=== PATIENT | female | born 1985 | race Caucasian/White ===

== ENCOUNTER 2016-08-09 21:31 | Emergency (ER) | payer MEDICARE, MEDICAID ==
[~2016-08-09] VITALS: Ht 162.6 cm; Wt 125.2 kg
[~2016-08-09 21:31] MED LIST: CLOTRIMAZOLE 1% LEFT EAR; NO ROUTINE MEDS
[2016-08-09 21:48] VITALS: BP 139/81; PULSE 90; RESP 24; TEMP 98.8; O2SAT 98; Ht 162.6 cm; Wt 125.2 kg
[2016-08-09] MEDS ORDERED: BIRTH CONTROL PILL PO (21:54)
--- NOTE | 2016-08-09 22:09 | ERPDOC ---
Departure Disposition Decision Date: Aug 09, 2016 Disposition Decision Time: 22:13 Disposition: 01 DISCHARGED HOME, SELF-CARE Impression Impression Impression: Primary Impression: Myalgia and myositis Severity: Moderate Condition: Improved Seen By: Physician only Referrals: ANGIE HEARN DO (PCP) Patient Instructions: Leg Pain (ED) Problems/Meds/Labs Reviewed?: Yes Medications reviewed and manag: Yes Additional Instructions: This appears to be inflammation of the lateral muscle on the thigh, the vastus lateralis. Take ibuprofen 600 mg 4 times daily and/or Tylenol 1000 g 4 times daily for pain control Offload pressure over the affected area as much as possible Get back into her walking regimen Prednisone 20 mg, one tablet once daily for 4 days Follow up care ordered?: Yes Mental Status: Alert Scripts Prednisone (Prednisone) 20 Mg Tablet 20 MG PO DAILY, #4 TAB 0 Refills Prov: DWIGHT SHULTZ MD 08/09/16 HPI - Lower Extremity General Chief Complaint: Lower Extremity Pain Stated Complaint: SEVERE CALF PAIN Time Seen by Provider: 21:56 Source: patient, family Exam Limitations: no limitations HPI - Lower Extremity Initial Comments 2 week history of waxing and waning left lateral distal thigh pain with tingling paresthesias and a feeling of "tightness" into the lateral left calf. Pains have gotten worse over the last 2 days. Patient has no significant injury that she knows of, she is disabled and essentially spends most of her time in a recliner at home. Patient does note that over the past one to 2 weeks with the symptoms, she has been sleeping in the recliner, and wonders if she may have caused a blood clot or some other problem by doing that. Occurred At: home Onset/Timing: Gradual Severity: moderate 1 - Mild to moderate pain with mild tenderness 2 - Radiation of the aching pain down the lateral leg Method of Injury: unknown Quality: aching, sharpness Allergies: Coded Allergies: bupropion (Verified Allergy, Unknown, 08/09/16) hydrocodone bit (Verified Allergy, Unknown, 08/09/16) Past History Patient Surgical History Tympanostomy tubes, 2015 Past Medical History ENMT: dental problems, sinusitis Respiratory: asthma Musculoskeletal: back pain Psychological: ADHD, depression Surgical History General: other, tonsils Family History Family PMH: FOUND: MS, diabetes, hypertension Vaccines Hx Influenza Vaccination: Yes (2014) Review of Systems Constitutional Constitutional: DENIES: appetite decrease, appetite increase, chills, dizziness , fever, weakness ENMT Ears: DENIES: pain Hearing: DENIES: hearing loss, tinnitus Balance: DENIES: vertigo Mouth/Throat: DENIES: change in swallowing, change in voice, hoarsness, painful swallowing, sore throat Cardiovascular Cardiac: DENIES: chest pain, dyspnea on exertion Rhythm/Rate: DENIES: irregular beat, palpitations, tachycardia Vascular: DENIES: pedal edema Pulmonary Respiratory: DENIES: cough, dyspnea, pleuritic chest pain GI Upper Abdomen: DENIES: dysphagia, heartburn/indigestion, nausea, pain, vomiting Lower Abdomen: DENIES: blood in stool, constipation, diarrhea, pain General: DENIES: burning, dysuria, frequency, pain, urgency Musculoskeletal General: pain, tenderness, DENIES: cramps, joint pain, joint swelling, weakness Comments Pain, lateral thigh as diagrammed, with radiation of an aching type sensation down the lateral aspect of the thigh into the calf. Patient has no pain with flexion or extension of the knee, no pain with flexion or extension of the ankle , no ataxia. Integumentary Skin: DENIES: rash, sores Neurological General: DENIES: headache, numbness, tingling, vertigo, weakness Psychiatric Psychiatric: DENIES: anxiety, depression, nervousness Physical Exam General General Nourishment: well nourished, well developed, appears stated age, obese General Body Habitus: well groomed Vitals and Pain First Documented Vital Signs Date Time Temp Pulse Resp B/P Pulse Ox O2 Delivery O2 Flow Rate FiO2 08/09/16 21:48 98.8 90 24 139/81 98 Room Air Weight: Kilograms: 125.200 Height (feet): 5 Height (inches): 4.00 Triage Pain Scale: RN VS reviewed by Provider: Yes Normal Exams: Head: Normocephalic w/o trauma Eyes: Pupils are PERRLA w/ EOMI, No scleral icterus, irritation, or foreign bodies noted ENMT: No facial trauma, nasal exudates, pharyngeal erythema, or exudates are noted Neck: Full range of motion, without adenopathy, JVD, bruits or thyromegaly Chest/Resp: Clear all burden, with good airflow, and symmetry bilaterally CV: Regular rate and rhythm, without murmur or gallop, Pulses 2+ all extremities, capillary refill, <2 seconds all ext., no pedal edema noted Abdomen: Bowel sounds positive, soft, non-tender, non-distended, no hepatosplenomegaly, masses or bruits noted Lymphatic: No lymphadenopathy, or lymphedema noted Integumentary: No rashes, hives, or bruising noted, hair and nails, without abnormality Neurologic: Patient is alert, and oriented, cranial nerves, motor/sensory/ cerebellar, exams w/o gross deficits, to observation Musculoskeletal (brief) Musculoskeletal Brief: FOUND: tenderness (mild to moderate tenderness over the distal vastus lateralis, palpation reproduces the patient's symptoms including radiation into the calf. Patient has no calf pain, no calf swelling, no edema, and calves circumference measurement is metric.), NOT FOUND: deformity, loss of motion, spasm Integumentary (brief) Integumentary Brief: FOUND: dry, pink, warm, NOT FOUND: lesions, rash Neurologic (brief) Neurological Brief: FOUND: CN w/o gross def to obs Psychiatric (brief) Psychiatric Brief: FOUND: attentive, normal affect Progress Progress Progress Patient has no clinical indication of DVT or blood clot. This appears to be pressure induced over the vastus lateralis. Patient has been using both Tylenol and ibuprofen, but has not had any medications today. 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 I discussed at length multiple allergies that the patient will employ to decrease pressure over the area at home while she is sitting or lying. Patient will also increase her exercise walking, as she has gotten away from this the past few weeks. DWIGHT SHULTZ MD Aug 09, 2016 22:09
[2016-08-09] MEDS ORDERED: KETOROLAC 60mg/2ml INJECTION IM ONE (22:15)
[2016-08-09] MEDS ORDERED: PRED20TA PO (22:17)
--- NOTE | 2016-08-09 23:05 | NUR ---
DEPARTURE PT COLLECTED BELONGINGS AND AMBULATED INDEPENDENTLY TO EXIT, GAIT STEADY.
== END 2016-08-09 23:05 | disposition home or self-care (01) ==
LOC: ED 21:31
DX: M60.9 Myositis, unspecified (principal)
CPT/HCPCS: 96372; 99283; J1885; J2930